=== PATIENT | female | born 1965 | race American Indian/Alaskan Native ===

== ENCOUNTER 2019-07-04 18:21 | Emergency (ER) | payer MEDICAID ==
--- NOTE | 2019-07-04 19:33 | Event Note ---
ED Screening Note ED Screening Note: co l arm pain; difficulty raising it up- for a week pt was cooking and then had sharp pin like pain in l chest called 911 no fall or trauma blockage in l neck brain surgery 2018 [facility] x 5 rx norvasc asa plavix statin ppi off plavix x 2 days no fall/trauma no hx cad This initial assessment/diagnostic orders/clinical plan/treatment(s) is/are subject to change based on patients health status, clinical progression and re- assessment by fellow clinical providers in the ED. Further treatment and workup at subsequent clinical providers discretion. Patient/guardian urged not to elope from the ED as their condition may be serious if not clinically assessed and managed. Initial orders include: given cp and off plavix ro acs
--- NOTE | 2019-07-04 20:07 | XRay Report ---
CHEST 2 VIEWS INDICATION: Chest Pain. COMPARISON: FINDINGS: Support devices: None. Heart: Within normal limits. Lungs: No acute air space or interstitial disease. Pleura: No significant pleural effusion. No pneumothorax. Small calcified granulomas present right up per lobe Additional findings: None. Degenerative changes thoracic spine noted. IMPRESSION: 1. No acute findings. Signer Name: Joel Justin MD Signed: 07/04/2019 8:02 PM Workstation Name: [id number]
--- NOTE | 2019-07-04 20:07 | XRay Report ---
HISTORY:pain l shoulder COMPARISON: None. TECHNIQUE: AP lateral and obliques views were obtained FINDINGS: Bones: No fracture or dislocation. Joint spaces: Maintained. Soft tissues: No significant abnormality. Additional findings: Degenerative changes acromioclavicular articulation present. IMPRESSION: 1. Degenerative changes as noted Signer Name: Joel Justin MD Signed: 07/04/2019 8:03 PM Workstation Name: [id number]
[2019-07-04 21:36] LABS: Hematocrit 38.8 % (30.3-42.9); Hemoglobin 13.1 gm/dl (10.1-14.3); Mean Corpuscular HGB Conc 34 % (30-34); Mean Corpuscular Volume 99 fl (79-97); Platelet Count 304 K/mm3 (140-440); Red Blood Count 3.93 M/mm3 (3.65-5.03)
[2019-07-04 22:01] LABS: Alanine Aminotransferase 13 units/L (7-56); Albumin 4.2 g/dL (3.9-5); BUN/Creatinine Ratio 24; Blood Urea Nitrogen 19 mg/dL (7-17); Calcium 9.7 mg/dL (8.4-10.2); Hemolysis Index 46
[2019-07-04] MEDS ORDERED: CYCLOBENZAPRINE 10 MG TAB PO ONE (22:09)
--- NOTE | 2019-07-04 22:14 | Emergency Department Report ---
ED General Adult HPI - General Chief complaint: Neck Pain/Injury Stated complaint: CHEST/L SHOULDER PAIN Time Seen by Provider: 07/04/19 19:28 Source: patient, EMS Mode of arrival: Stretcher Limitations: No Limitations - History of Present Illness Initial comments: Patient is a 53-year-old female emergency room with complaints of left-sided shoulder pain that began a week ago. She states that it hurts worse with movement. She denies any fall or injury. She denies any numbness or weakness. She states that she also has left-sided chest pain that began today. She states that it feels like a pinching/sticking sensation. She states that lasted for a few seconds and she felt some mild palpitations. She denies any chest pain at all currently. She states she has a past medical history of brain surgery in 2018 for meningioma at [facility], TIA, carotid stenosis. She states that she has been out of her Plavix for the last 3 days. She states that she had a stress test at [facility] in 2018 which was normal per pt. She has an allergy to codeine. - Related Data Previous Rx's Medication Instructions Recorded Last Taken Type Acetaminophen [Tylenol] 650 mg PO Q8HR PRN #20 capsule 07/05/19 Unknown Rx Aspirin [Adult Aspirin] 81 mg PO DAILY #30 tablet. 07/05/19 Unknown Rx Clopidogrel [Plavix] 75 mg PO QDAY #30 tablet 07/05/19 Unknown Rx Cyclobenzaprine [Flexeril] 10 mg PO QHS PRN #12 tablet 07/05/19 Unknown Rx Allergies Allergy/AdvReac Type Severity Reaction Status Date / Time codeine Allergy Unknown Verified 07/04/19 18:45 ED Review of Systems ROS: Stated complaint: CHEST/L SHOULDER PAIN Other details as noted in HPI Comment: All other systems reviewed and negative ED Past Medical Hx - Past Medical History Previous Medical History?: Yes Hx Hypertension: Yes Hx CVA: Yes (X 2) - Surgical History Past Surgical History?: Yes Additional Surgical History: Brain surgery - Social History Smoking Status: Current Every Day Smoker Substance Use Type: None - Medications Home Medications: Home Medications Medication Instructions Recorded Confirmed Last Taken Type Acetaminophen [Tylenol] 650 mg PO Q8HR PRN #20 capsule 07/05/19 Unknown Rx Aspirin [Adult Aspirin] 81 mg PO DAILY #30 tablet. 07/05/19 Unknown Rx Clopidogrel [Plavix] 75 mg PO QDAY #30 tablet 07/05/19 Unknown Rx Cyclobenzaprine [Flexeril] 10 mg PO QHS PRN #12 tablet 07/05/19 Unknown Rx ED Physical Exam - General Limitations: No Limitations General appearance: alert, in no apparent distress - Head Head exam: Present: atraumatic, normocephalic - Eye Eye exam: Present: normal appearance - ENT ENT exam: Present: mucous membranes moist - Neck Neck exam: Present: normal inspection, full ROM. Absent: tenderness - Respiratory Respiratory exam: Present: normal lung sounds bilaterally. Absent: respiratory distress, wheezes, rhonchi, stridor, chest wall tenderness, accessory muscle use, decreased breath sounds, prolonged expiratory - Cardiovascular Cardiovascular Exam: Present: regular rate, normal rhythm, normal heart sounds. Absent: systolic murmur, diastolic murmur, rubs, gallop - Extremities Exam Extremities exam: Present: other (no bony TTP of the left shoulder, FROM of the left shoulder with discomfort upon full flexion, neurovascularly intact) - Neurological Exam Neurological exam: Present: alert, oriented X3, CN II-XII intact. Absent: motor sensory deficit - Psychiatric Psychiatric exam: Present: normal affect, normal mood - Skin Skin exam: Present: warm, dry, intact ED Course Vital Signs 07/04/19 07/04/19 07/04/19 19:29 21:56 22:00 Temperature 98.6 F Pulse Rate 75 Respiratory 18 18 Rate Blood Pressure 138/75 120/77 Blood Pressure [Left] O2 Sat by Pulse 100 99 98 Oximetry 07/05/19 02:57 Temperature Pulse Rate 75 Respiratory 18 Rate Blood Pressure Blood Pressure 143/92 [Left] O2 Sat by Pulse 99 Oximetry - Consultations Consultation #1: 07/05/19 02:[address] Herring, vascular surgery regarding CT results and pt history, he advised if not having neurological symptoms can be followed up with as an outpatient and to place pt back on her plavix/aspirin ED Medical Decision Making - Lab Data Result diagrams: 07/04/19 21:03 07/04/19 21:03 Lab Results 07/04/19 07/04/19 07/05/19 Range/Units 21:03 21:03 01:18 WBC 7.1 (4.5-11.0) K/mm3 RBC 3.93 (3.65-5.03) M/mm3 Hgb 13.1 (10.1-14.3) gm/dl Hct 38.8 (30.3-42.9) % MCV 99 H (79-97) fl MCH 33 H (28-32) pg MCHC 34 (30-34) % RDW 13.0 L (13.2-15.2) % Plt Count 304 (140-440) K/mm3 Add Manual Diff Complete Total Counted 100 Seg Neuts % (Manual) 69.0 (40.0-70.0) % Band Neutrophils % 0 % Lymphocytes % (Manual) 23.0 (13.4-35.0) % Reactive Lymphs % (Man) 0 % Monocytes % (Manual) 6.0 (0.0-7.3) % Eosinophils % (Manual) 2.0 (0.0-4.3) % Basophils % (Manual) 0 (0.0-1.8) % Metamyelocytes % 0 % Myelocytes % 0 % Promyelocytes % 0 % Blast Cells % 0 % Nucleated RBC % Not Reportable Seg Neutrophils # Man 4.9 (1.8-7.7) K/mm3 Band Neutrophils # 0.0 K/mm3 Lymphocytes # (Manual) 1.6 (1.2-5.4) K/mm3 Abs React Lymphs (Man) 0.0 K/mm3 Monocytes # (Manual) 0.4 (0.0-0.8) K/mm3 Eosinophils # (Manual) 0.1 (0.0-0.4) K/mm3 Basophils # (Manual) 0.0 (0.0-0.1) K/mm3 Metamyelocytes # 0.0 K/mm3 Myelocytes # 0.0 K/mm3 Promyelocytes # 0.0 K/mm3 Blast Cells # 0.0 K/mm3 WBC Morphology Not Reportable Hypersegmented Neuts Not Reportable Hyposegmented Neuts Not Reportable Hypogranular Neuts Not Reportable Smudge Cells Not Reportable Toxic Granulation Not Reportable Toxic Vacuolation Not Reportable Dohle Bodies Not Reportable Pelger-Huet Anomaly Not Reportable Micheline Rods Not Reportable Platelet Estimate Appears normal Clumped Platelets Not Reportable Plt Clumps, EDTA Not Reportable Large Platelets Not Reportable Giant Platelets Not Reportable Platelet Satelliting Not Reportable Plt Morphology Comment Not Reportable RBC Morphology Normal Dimorphic RBCs Not Reportable Polychromasia Not Reportable Hypochromasia Not Reportable Poikilocytosis Not Reportable Anisocytosis Not Reportable Microcytosis Not Reportable Macrocytosis Not Reportable Spherocytes Not Reportable Pappenheimer Bodies Not Reportable Sickle Cells Not Reportable Target Cells Not Reportable Tear Drop Cells Not Reportable Ovalocytes Not Reportable Helmet Cells Not Reportable Mar[place] Housing Bodies Not Reportable Leroy Rings Not Reportable Center Cells Not Reportable Bite Cells Not Reportable Crenated Cell Not Reportable Elliptocytes Not Reportable Acanthocytes (Spur) Not Reportable Rouleaux Not Reportable Hemoglobin C Crystals Not Reportable Schistocytes Not Reportable Malaria parasites Not Reportable Andrzej Bodies Not Reportable Hem Pathologist Commnt No Sodium 142 (137-145) mmol/L Potassium 3.8 (3.6-5.0) mmol/L Chloride 107.5 H (98-107) mmol/L Carbon Dioxide 19 L (22-30) mmol/L Anion Gap 19 mmol/L BUN 19 H (7-17) mg/dL Creatinine 0.8 (0.7-1.2) mg/dL Estimated GFR > 60 ml/min BUN/Creatinine Ratio 24 % Glucose 110 H (65-100) mg/dL Calcium 9.7 (8.4-10.2) mg/dL Total Bilirubin 0.40 (0.1-1.2) mg/dL AST 16 (5-40) units/L ALT 13 (7-56) units/L Alkaline Phosphatase 91 (35-129) units/L Troponin T < 0.010 < 0.010 (0.00-0.029) ng/mL Total Protein 7.9 (6.3-8.2) g/dL Albumin 4.2 (3.9-5) g/dL Albumin/Globulin Ratio 1.1 % - EKG Data EKG shows normal: sinus rhythm, axis, intervals, QRS complexes, ST-T waves Rate: normal - Radiology Data Radiology results: report reviewed HISTORY:pain l shoulder COMPARISON: None. TECHNIQUE: AP lateral and obliques views were obtained FINDINGS: Bones: No fracture or dislocation. Joint spaces: Maintained. Soft tissues: No significant abnormality. Additional findings: Degenerative changes acromioclavicular articulation present. IMPRESSION: 1. Degenerative changes as noted Signer Name: Joel Justin MD Signed: 07/04/2019 8:03 PM Workstation Name: [id number] Transcribed By: SHAWNA Dictated By: Joel Justin MD Electronically Authenticated By: Joel Justin MD Signed Date/Time: 07/04/192002 DD/ 01 TD/TT: NECK CT ANGIOGRAM 07/05/2019 HISTORY: Left-sided neck pain FINDINGS: Contrast-enhanced CT angiographic images of the neck were obtained. I n addition to the axial images, sagittal and coronal reformatted images were obtained. In addition, 3 plane MIP reconstructions were produced. NASCET like criteria were used in this evaluation. These images were obtained on an emergency basis. There is no evidence of acute abnormality. On the right, there is significant narrowing of the proximal right internal carotid artery above the bifurcation. This is approximately 80-90% stenosis, associated with a string sign of the right internal carotid artery. This is a very narrow caliber vessel above the high- grade stenosis. The left bifurcation, mild atherosclerotic changes are present. Vertebral artery contours are unremarkable. Patient has had prior right sided craniotomy, with resection of portions of the right sphenoid wing, and portions of the orbit. Abnormal soft tissue present in this area.. Soft tissue changes in the region of the right posterior orbit also present. These complex findings he can be correlated with clinical information, as well as compared to prior studies. Evaluation for underlying neoplasm or recurrent neoplasm would require comparison with prior studies correlation with clinical information. Right frontal encephalomalacia is present. These findings were correlated with clinical information and prior studies for full evaluation,. IMPRESSION: 1. High-grade stenosis at the origin of the right internal carotid artery, associated with a string sign of the right ICA. 2. Complex postoperative right frontal and craniofacial surgical changes as described above. Comparison with prior studies recommended All CT scans at this location are performed using dose reduction to ALARA by means of automated exposure control. Signer Name: Hemant Richter MD Signed: 07/05/2019 1:37 AM Workstation Name: [id number] Transcribed By: KASSANDRA Dictated By: Hemant Richter MD Electronically Authenticated By: Hemant Richter MD Signed Date/Time: 07/05/19136 DD/ 9 TD/TT: CHEST 2 VIEWS INDICATION: Chest Pain. COMPARISON: FINDINGS: Support devices: None. Heart: Within normal limits. Lungs: No acute air space or interstitial disease. Pleura: No significant pleural effusion. No pneumothorax. Small calcified granulomas present right upper lobe Additional findings: None. Degenerative changes thoracic spine noted. IMPRESSION: 1. No acute findings. Signer Name: Joel Justin MD Signed: 07/04/2019 8:02 PM Workstation Name: [id number] Transcribed By: SHAWNA Dictated By: Joel Justin MD Electronically Authenticated By: Joel Justin MD Signed Date/Time: 07/04/192001 DD/ 01 TD/TT: - Medical Decision Making Patient is a 53-year-old female emergency room with complaints of left-sided shoulder pain that began a week ago. She states that it hurts worse with movement. She denies any fall or injury. She denies any numbness or weakness. She states that she also has left-sided chest pain that began today. She states that it feels like a pinching/sticking sensation. She states that lasted for a few seconds and she felt some mild palpitations. She denies any chest pain at all currently. She states she has a past medical history of brain surgery in 2018 for meningioma at [facility], TIA, carotid stenosis. She states that she has been out of her Plavix for the last 3 days. She states that she had a stress test at [facility] in 2018 which was normal per pt. She has an allergy to codeine. VSS. on exam: no bony TTP of the left shoulder, FROM of the left shoulder with discomfort upon full flexion, neurovascularly intact. EKG WNL. trop negative x2. XR shoulder: 1. Degenerative changes as noted. CXR: 1. No acute findings. CTA neck: . High-grade stenosis at the origin of the right internal carotid artery, associated with a string sign of the right ICA. 2. Complex postoperative right frontal and craniofacial surgical changes as described above. Comparison with prior studies recommended. discussed pt to follow up with [facility] who did her surgery. spoke with Dr. Herring, vascular surgery regarding CT results and pt history, he advised if not having neurological symptoms can be followed up with as an outpatient and to place pt back on her plavix/aspirin. pt is not having any neurological deficits. discussed case with Dr. Rivera, ER attending who agrees with outpatient follow up and to resume medications. - Differential Diagnosis strain, sprain, rotator cuff, DJD, arthritis, carotid stenosis, ACS Critical care attestation.: If time is entered above; I have spent that time in minutes in the direct care of this critically ill patient, excluding procedure time. ED Disposition Clinical Impression: Left shoulder pain Qualifiers: Chronicity: acute Qualified Code(s): M25.512 - Pain in left shoulder Chest pain Qualifiers: Chest pain type: unspecified Qualified Code(s): R07.9 - Chest pain, unspecified Carotid stenosis Qualifiers: Laterality: left Qualified Code(s): I65.22 - Occlusion and stenosis of left carotid artery Disposition: TO HOME OR SELFCARE Is pt being admited?: No Does the pt Need Aspirin: No Condition: Stable Instructions: Chest Pain (ED), Muscle Strain (ED) Additional Instructions: please take medication as prescribed. Do not drive or operate machinery while taking muscle relaxer. May use ice pack, heating pad, rest, epsom salt bath. Follow-up with a primary care doctor, vascular surgeon, licensed practical vocational nurse in the next 2-3 days. Return to the emergency room for any new or worsening symptoms. Prescriptions: Cyclobenzaprine [Flexeril] 10 mg PO QHS PRN #12 tablet PRN Reason: Muscle Spasm Aspirin [Adult Aspirin] 81 mg PO DAILY #30 tablet. Clopidogrel [Plavix] 75 mg PO QDAY #30 tablet Acetaminophen [Tylenol] 650 mg PO Q8HR PRN #20 capsule PRN Reason: pain Referrals: PRIMARY CARE, [Primary Care Provider] - 2-3 Days MATTIE HERRING MD [Staff Physician] - 2-3 Days KRZYSZTOF MYERS MD [Staff Physician] - 2-3 Days Time of Disposition: 02:39 Print Language: LUXEMBOURGISH
[2019-07-04 22:18] LABS: Basophils % (Manual) 0 % (0.0-1.8); Total Cells Counted 100
[2019-07-04 22:20] LABS: RBC Morphology Normal
--- NOTE | 2019-07-05 01:42 | Cat Scan Report ---
NECK CT ANGIOGRAM 07/05/2019 HISTORY: Left-sided neck pain FINDINGS: Contrast-enhanced CT angiographic images of the neck were obtained. In addition to the axia l images, sagittal and coronal reformatted images were obtained. In addition, 3 plane MIP reconstruct ions were produced. NASCET like criteria were used in this evaluation. These images were obtained on an emergency basis. There is no evidence of acute abnormality. On the right, there is significant narrowing of the proximal right internal carotid artery above the bifurcation. This is approximately 80-90% stenosis, associated with a string sign of the right international trade analyst al carotid artery. This is a very narrow caliber vessel above the high-grade stenosis. The left bifurcation, mild atherosclerotic changes are present. Vertebral artery contours are unremarkable. Patient has had prior right sided craniotomy, with resection of portions of the right sphenoid wing, and portions of the orbit. Abnormal soft tissue present in this area.. Soft tissue changes in the reg ion of the right posterior orbit also present. These complex findings he can be correlated with clinical information, as well as compared to prior s tudies. Evaluation for underlying neoplasm or recurrent neoplasm would require comparison with prior studies correlation with clinical information. Right frontal encephalomalacia is present. These findings were correlated with clinical information and prior studies for full evaluation,. IMPRESSION: 1. High-grade stenosis at the origin of the right internal carotid artery, associated with a string s ign of the right ICA. 2. Complex postoperative right frontal and craniofacial surgical changes as described above. Comparis on with prior studies recommended All CT scans at this location are performed using dose reduction to ALARA by means of automated expos ure control. Signer Name: Hemant Richter MD Signed: 07/05/2019 1:37 AM Workstation Name: [id number]
[2019-07-05 03:03] VITALS: BP 143/92
== END 2019-07-05 02:57 | disposition home or self-care (01) ==
LOC: ED 18:21
DX: I65.22 Occlusion and stenosis of left carotid artery (principal); M25.512 Pain in left shoulder; R07.9 Chest pain, unspecified; I10 Essential (primary) hypertension; F17.200 Nicotine dependence, unspecified, uncomplicated; Z88.5 Allergy status to narcotic agent; Z98.890 Other specified postprocedural states; Z79.899 Other long term (current) drug therapy; Z86.73 Personal history of transient ischemic attack (TIA), and cerebral infarction without residual deficits
CPT/HCPCS: 36415; 70498; 71046; 73030; 80053; 84484; 85007; 85025; 93005; 93010; 99285; Q9967